=== PATIENT | female | born 1990 | race Caucasian/White ===

== ENCOUNTER → 2016-12-14 | Outpatient (CLI) | payer BC ==
--- NOTE | 2016-12-14 16:43 | Diagnostic Imaging Report ---
PROCEDURE: MRI left joint lower extremity without contrast. TECHNIQUE: Multiplanar, multisequence MR imaging of the left knee was performed without contrast. COMPARISON: None available. INDICATION: Knee pain. Prior ACL repair 14 years ago. FINDINGS: MENISCI Medial meniscus: Normal. Lateral meniscus: Normal. LIGAMENTS ACL: Status post ACL reconstruction with complete rupture of the ACL graft in its midsubstance. PCL: Intact. MCL: MCL is abnormally thickened with intrinsic increased signal within the ligament, as well as on both sides of the ligament, indicative of intermediate-grade sprain. LCL: The lateral collateral ligamentous complex is intact. EXTENSOR MECHANISM The extensor mechanism is intact. CARTILAGE Medial compartment: Medial compartment articular cartilage is well preserved without focal high-grade chondromalacia. Lateral compartment: Focal full-thickness chondral fissuring in the central weightbearing portion of the medial femoral condyle (well seen on image 8, series 6). Patellofemoral compartment: The patellofemoral articular cartilage is well preserved without high-grade chondromalacia. BONE Amorphous region of bone marrow edema throughout the lateral tibial plateau, predominantly posteriorly, is compatible with bone contusion/microtrabecular fracture. No fracture line. A small amount of bone contusion is also present in the lateral femoral condyle. Focal subchondral contusion in the periphery of the medial femoral condyle is also seen. SOFT TISSUE: Small knee joint effusion and small Frazier's cyst. IMPRESSION: 1. Status post ACL reconstruction with complete rupture of the graft. 2. No meniscal tear. 3. Intermediate-grade sprain/partial tear of the MCL. 4. Kissing contusions in the lateral femoral condyle and posterior aspect of the lateral tibial plateau. A smaller focus of bone contusion is also present in the periphery of the medial femoral condyle. 5. Small knee joint effusion and small Frazier's cyst. Dictated by: Dictated on workstation # [id number]
== END ==
LOC: RAD 15:10
PROVIDERS: ATTEND Orthopaedic Surgery
DX: S80.02XA Contusion of left knee, initial encounter (principal); M25.462 Effusion, left knee; M71.22 Synovial cyst of popliteal space [Baker], left knee; Z98.890 Other specified postprocedural states; X58.XXXA Exposure to other specified factors, initial encounter; Y99.8 Other external cause status
CPT/HCPCS: 73721